=== PATIENT | female | born 1995 | race African-American/Black ===

== ENCOUNTER 2017-01-27 10:31 | Emergency (ER) | payer SELFPAY ==
[2017-01-27 10:33] VITALS: BP 143/86; PULSE 88; RESP 20; TEMP 98.6; O2SAT 99
== END 2017-01-27 11:46 | disposition left against medical advice (07) ==
LOC: NED 10:31
DX: Z53.21 Procedure and treatment not carried out due to patient leaving prior to being seen by health care provider (principal)
CPT/HCPCS: 99281

== ENCOUNTER 2017-04-29 11:55 | Emergency (ER) | payer SELFPAY ==
[~2017-04-29] VITALS: Ht 170.2 cm; Wt 110.0 kg
[2017-04-29 11:58] VITALS: BP 141/71; PULSE 89; RESP 16; TEMP 98.2; O2SAT 99
[2017-04-29] MEDS ORDERED: DIFL150T PO (12:43)
[2017-04-29] MEDS ORDERED: VIST50CA PO (12:43)
[2017-04-29] MEDS ORDERED: LOTR15T TOPICAL (12:43)
--- NOTE | 2017-04-29 13:30 | PD ---
HPI . 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 She also states that it is red. The onset of symptoms about a month ago and the symptoms lasted a week or so but spontaneously resolved. Symptoms recurred again a couple days ago. She decided to come in and get it checked out. She denies any other symptoms such as pelvic pain, abnormal vaginal bleeding, etc. She has not tried anything for the symptoms because she didn't know what it was and didn't know what she should do. She has not noted any exacerbating or relieving factors. She denies any underlying medical problems such as diabetes. She denies any previous similar history. PFSH Past Medical History Cardiovascular Problems: Yes (silvana) Developmental Delay: No Diminished Hearing: No Immunizations Current: No Tetanus Vaccination: < 5 Years ?: Not : 0 Para: 0 Miscarriage: 0 : 0 Social History Alcohol Use: No Tobacco Use: Yes Substance Use: No Allergies-Medications (Allergen,Severity, Reaction): Coded Allergies: No Known Allergies (Verified Adverse Reaction, Unknown, 04/29/17) Reported Meds & Prescriptions Reported Meds & Active Scripts Active Lotrisone Topical (Betamethasone/Clotrimazole) 1-0.05% Cream 1 Applic TOPICAL BID Vistaril (Hydroxyzine Pamoate) 50 Mg Cap 50 Mg PO QID PRN Diflucan (Fluconazole) 150 Mg Tab 150 Mg PO ONCE Review of Systems Except as stated in HPI: all other systems reviewed are Neg Genitourinary: Positive: Other Physical Exam Narrative GENERAL: Awake and alert and in no acute distress. SKIN: Warm and dry. HEAD: Normocephalic/atraumatic. EYES: Pupils are equal. Extraocular movements are intact. NECK: Normal range of motion. CARDIOVASCULAR: Regular rate and rhythm. RESPIRATORY: Nonlabored respirations. : Erythema of the external ears and diarrhea with a "soupy" discharge on the labia minora. There is some minor excoriation. MUSCULOSKELETAL: Atraumatic. NEUROLOGICAL: Nonfocal. PSYCHIATRIC: Appropriate mood and affect. Data Data Last Documented VS Vital Signs Date Time Temp Pulse Resp B/P (MAP) Pulse Ox O2 Delivery O2 Flow Rate FiO2 04/29/17 11:58 98.2 89 16 141/71 (94) 99 Orders Orders Ed Discharge Order (04/29/17 12:44) MDM Medical Decision Making Medical Screen Exam Complete: Yes Emergency Medical Condition: Yes Differential Diagnosis Differential diagnosis includes but is not limited to yeast infection, herpes, bacterial vaginosis Narrative Course This patient presents with pruritus and erythema of the external genitalia. Her physical exam is compatible with yeast. I will give her 1 oral Diflucan as well as Lotrisone to use externally. I have given her a prescription for Vistaril for the itching. Diagnosis Primary Impression: Yeast infection involving the vagina and surrounding area Referrals: [facility] Patient Instructions: General Instructions Departure Forms: Tests/Procedures Scripts Betamethasone-Clotrimazole Topical (Lotrisone Topical) 1-0.05% Cream 1 APPLIC TOPICAL BID for Fungal infection, #45 GM 0 Refills Prov: Angela Hayes MD 04/29/17 Hydroxyzine Pamoate (Vistaril) 50 Mg Cap 50 MG PO QID Y for itching, #30 CAP 0 Refills Prov: Angela Hayes MD 04/29/17 Fluconazole (Diflucan) 150 Mg Tab 150 MG PO ONCE for Infection, #1 TAB 0 Refills Prov: Angela Hayes MD 04/29/17 Disposition: 01 DISCHARGE HOME Condition: Stable Angela Hayes MD Apr 29, 2017 13:30
== END 2017-04-29 13:40 | disposition home or self-care (01) ==
LOC: NEPD 11:55
DX: B37.3 Candidiasis of vulva and vagina (principal); Z72.0 Tobacco use
CPT/HCPCS: 99284

== ENCOUNTER 2017-09-14 00:54 | Emergency (ER) | payer OTHER ==
[~2017-09-14] VITALS: Ht 170.2 cm; Wt 110.0 kg
[~2017-09-14 00:54] MED LIST: DIFL150T PO; LOTR15T TOPICAL; VIST50CA PO
[2017-09-14 01:24] VITALS: BP 148/86; PULSE 96; RESP 18; TEMP 98.8; O2SAT 100
[2017-09-14] MEDS ORDERED: HYDR-3583 PO (01:32)
[2017-09-14 02:05] LABS: AUTOMATED NEUTROPHIL # 5.1 TH/MM3 (1.8-7.7); BASOPHIL % 0.6 % (0.0-2.0); EOSINOPHIL % 0.5 % (0.0-4.0); HEMATOCRIT 39.1 % (35.0-46.0); HEMOGLOBIN 13.4 GM/DL (11.6-15.3); LYMPH % 21.8 % (9.0-44.0); LYMPHOCYTE # 1.6 TH/MM3 (1.0-4.8); MEAN CELL VOLUME 75.2 FL (80.0-100.0); MEAN CORPUSCULAR HEMOGLOBIN 25.8 PG (27.0-34.0); MEAN CORPUSCULAR HGB CONC 34.3 % (32.0-36.0); MEAN PLATELET VOLUME 8.3 FL (7.0-11.0); MONO % 5.3 % (0.0-8.0); MONOCYTE # 0.4 TH/MM3 (0-0.9); NEUT % 71.8 % (16.0-70.0); PLATELET COUNT 357 TH/MM3 (150-450); RED CELL DISTRIBUTION WIDTH 13.5 % (11.6-17.2); WHITE BLOOD COUNT 7.1 TH/MM3 (4.0-11.0)
[2017-09-14 02:36] LABS: ALKALINE PHOSPHATASE 80 U/L (45-117); TOTAL BILIRUBIN ADULT 0.2 MG/DL (0.2-1.0); TOTAL PROTEIN 8.4 GM/DL (6.4-8.2); TROPONIN I LESS THAN 0.02 NG/ML (0.02-0.05)
[2017-09-14 02:37] LABS: ALT (GPT) 20 U/L (9-42); AST (GOT) 17 U/L (16-38); BICARBONATE 18.4 MEQ/L (21.0-32.0); BLOOD UREA NITROGEN 8 MG/DL (7-18); CALCIUM 8.9 MG/DL (8.5-10.1); CHLORIDE 108 MEQ/L (98-107); CREATININE 0.89 MG/DL (0.50-1.00); GLOMERULAR FILTRATION RATE 98 ML/MIN (>89); GLUCOSE,RANDOM 99 MG/DL (74-106); SODIUM (NA) 141 MEQ/L (136-145)
[2017-09-14] MEDS ORDERED: IOHEXOL 350 MG/ML 10 ML VIAL (for RAD DIAG) IVCONTRAST ONE (03:00)
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
[2017-09-14] MEDS ORDERED: KETOROLAC TROMETHAMINE 30 MG/ML (IVP) VIAL IV PUSH ONE (03:45)
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
[2017-09-14] MEDS ORDERED: DIAZ2 PO (05:17)
[2017-09-14] MEDS ORDERED: IBUP-232 PO (05:17)
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
== END 2017-09-14 05:35 | disposition home or self-care (01) ==
LOC: NEPE 00:54
DX: S90.02XA Contusion of left ankle, initial encounter (principal); V47.5XXA Car driver injured in collision with fixed or stationary object in traffic accident, initial encounter
CPT/HCPCS: 70450; 71260; 72125; 73610; 74177; 80053; 82150; 82550; 82552; 83690; 84484; 84703; 85025; 96374; 99285; J1885; Q9967